=== PATIENT | female | born 1955 | race Caucasian/White ===

== ENCOUNTER 2020-03-30 09:34 | Day surgery (SDC) | payer OTHER, SELFPAY ==
[~2020-03-30] VITALS: Ht 160 cm; Wt 77.1 kg
[2020-03-30] MEDS ORDERED: POLYMYXIN 500,000/BACIT.10,000 UNITS in NS IRR 1 L IR ONE (11:57)
[2020-03-30] MEDS ORDERED: LR 1,000 ML IV SCH (12:45)
[2020-03-30] MEDS ORDERED: hydrALAZINE HCL 20 MG/ML VIAL IVP PRN (12:45)
[2020-03-30] MEDS ORDERED: ONDANSETRON HCL 4 MG/2 ML VIAL IVP PRN (12:45)
[2020-03-30] MEDS ORDERED: HYDROmorphone 1 MG INJ. 1 MG/ML AMPUL IVP PRN ×2 (12:45)
[2020-03-30] MEDS ORDERED: METOCLOPRAMIDE HCL 10 MG/2 ML VIAL IVP PRN (12:45)
[2020-03-30] MEDS ORDERED: LABETALOL 100 MG/ 20ML VIAL IVP PRN (12:45)
[2020-03-30] MEDS ORDERED: MEPERIDINE HCL/PF 25 MG/ML DISP.SYRIN IVP PRN (12:45)
[2020-03-30] MEDS ORDERED: MIDAZOLAM HCL 2 MG/2 ML VIAL (VERSED) IVP PRN (12:45)
[2020-03-30] MEDS ORDERED: HYDROcodone/ACETAMIN 5-325 MG TAB (NORCO/ VICODIN) PO ONE (14:30)
[2020-03-30] MEDS ORDERED: HYDROcodone/ACETAMIN 5-325 MG TAB (NORCO/ VICODIN) ONE (14:32)
[2020-03-30 15:49] VITALS: BP_SYST 148
== END 2020-03-30 16:00 | disposition home or self-care (01) ==
LOC: SMU 09:34 → SDS 09:34
PROVIDERS: ATTEND Orthopaedic Surgery
DX: Z47.2 Encounter for removal of internal fixation device (principal); Z20.828 Contact with and (suspected) exposure to other viral communicable diseases
CPT/HCPCS: 20680; U0003